=== PATIENT | male | born 1955 | race Caucasian/White ===

== ENCOUNTER 2018-04-04 15:53 | Inpatient (IN) | payer MEDICAID ==
[~2018-04-04] VITALS: Ht 180.3 cm; Wt 79.5 kg
[~2018-04-04 15:53] MED LIST: ALBU6.7H INH; LIDOcaine 2% 5ml jelly ONE; PANT-47 PO; etomidate 2mg/ml inj. ONE
[2018-04-04] MEDS ORDERED: metoprolol tartrate 25mg tablet PO ONE ×2 (16:15→23:30)
[2018-04-04] MEDS: nitroGLYCERIN 0.4mg SUBLingual tab SL PRN ×4 (16:23→23:14)
--- NOTE | 2018-04-04 16:41 | NUR ---
had 02 sat of 85 placed on 4L nc now up to 94%
[2018-04-04 16:49] LABS: BASOPHILS % (AUTO) 0.4 % (0-1); EOSINOPHILS # (AUTO) 0.1 X10'3 (0-0.9); HEMATOCRIT 45.3 % (42.0-52.0); HEMOGLOBIN 15.5 g/dl (14.0-17.9); LYMPHOCYTES # (AUTO) 1.7 X10'3 (1.1-4.8); MEAN CORPUSCULAR HEMOGLOBIN 32.6 PG (27.0-31.0); MEAN CORPUSCULAR HGB CONC 34.2 % (33.0-36.5); MEAN CORPUSCULAR VOLUME 95.2 FL (78-98); MEAN PLATELET VOLUME 8.2 FL (7.4-10.4); MONOCYTES # (AUTO) 0.6 X10'3 (0-0.9); MONOCYTES % (AUTO) 5.9 % (2-12); NEUTROPHILS # (AUTO) 7.5 X10'3 (1.8-7.7); NEUTROPHILS % (AUTO) 75.7 % (42-75); PLATELET COUNT 230 X10'3 (140-440); RED BLOOD COUNT 4.76 X10'6 (4.70-6.10); RED CELL DISTRIBUTION WIDTH 13.3 % (11.5-14.5); WHITE BLOOD COUNT 9.9 X10'3 (4.5-11.0)
[2018-04-04 16:59] LABS: ALANINE AMINOTRANSFERASE 79 U/L (12-78); ALBUMIN 4.4 G/DL (3.4-5.0); ALBUMIN/GLOBULIN RATIO 1.2 (1.1-1.5); ALKALINE PHOSPHATASE 87 IU/L (46-116); ANION GAP 15 (8-16); ASPARTATE AMINO TRANSFERASE 62 U/L (10-37); BILIRUBIN,TOTAL 1.8 MG/DL (0.1-1.0); BLOOD UREA NITROGEN 7 MG/DL (7-18); BUN/CREATININE RATIO 10.1 (5.4-32.0); CALCIUM 9.5 MG/DL (8.5-10.1); CHLORIDE 93 MMOL/L (99-107); CREATININE 0.69 MG/DL (0.60-1.10); GLUCOSE 119 MG/DL (70-104); POTASSIUM 3.5 MMOL/L (3.5-5.1); SODIUM 132 MMOL/L (135-145); TOTAL CARBON DIOXIDE 24.1 MMOL/L (24-32); TOTAL PROTEIN 8.1 G/DL (6.4-8.2); eGFR > 90 ML/MIN
[2018-04-04 17:04] LABS: PARTIAL THROMBOPLASTIN TIME 27 SECONDS (22-32); PROTHROMBIN TIME 10.2 SECONDS (9.0-12.0)
[2018-04-04] MEDS ORDERED: morphine 4 MG/ML inj SYRINge IV ONE (17:15)
[2018-04-04] MEDS ORDERED: nitroGLYCERIN 1gm ointment UD TP ONE (17:15)
[2018-04-04] MEDS ORDERED: ipratropium/albuterol 3ml nebule NEB ONE (17:15)
[2018-04-04] MEDS ORDERED: NAPR220T67 PO (17:26)
[2018-04-04 17:36] LABS: ETHANOL < 0.010 GM/DL (0.0-0.010)
[2018-04-04] MEDS ORDERED: aspirin 81mg tab.chew PO ONE (17:50)
--- NOTE | 2018-04-04 19:52 | NUR ---
pt resting cp 2/10 warm blanket provided RP bag machine tender RN
[2018-04-04] MEDS ORDERED: magnesium hydroxide 30ml (MOM) UD suspension PO PRN (20:50)
[2018-04-04] MEDS ORDERED: ondansetron/PF 4mg/2ml inj IV PRN (20:50)
[2018-04-04] MEDS ORDERED: acetaminophen 325mg tablet PO PRN (20:50)
[2018-04-04] MEDS ORDERED: mag hydrox/Alum hydrox/simeth 30ml oral suspension PO PRN (20:50)
[2018-04-04] MEDS ORDERED: albuterol 2.5 MG/3 ML nebule NEB PRN (20:55)
--- NOTE | 2018-04-04 21:00 | NUR ---
Patient in room PCU 3017. I have received report from Gustavo SMALL and had the opportunity to ask questions and assume patient care.
[2018-04-04 21:10] LABS: HEMOGLOBIN A1C 5.3 % (4.5-6.2)
--- NOTE | 2018-04-04 21:50 | NUR ---
Patient arrived to room 3017A via wheelchair and ambulated to bed. All belongings were on person, patient oriented to room, call light and plan of care. All questions answered, increased BP, Dr. Porter was notified and Metoprolol was ordered.
[2018-04-04 22:00] VITALS: BP 182/96
[2018-04-05] VITALS (8 sets, daily range): BP systolic 147–180; BP diastolic 92–112
[2018-04-05] MEDS: HYDROcodone/acetaminophen 5mg/325mg tablet PO PRN ×2 (02:15→11:31)
[2018-04-05] MEDS ORDERED: nitroGLYCERIN 0.2mg/hour patch TD ONE (02:50)
[2018-04-05 04:42] LABS: CLARITY,URINE CLEAR (Clear); COLOR,URINE YELLOW (Yellow); GLUCOSE, URINE NEGATIVE (Neg); KETONES,URINE 40 mg/dl (Neg); LEUKOCYTE ESTERASE ,URINE NEGATIVE (Neg); NITRITES, URINE NEGATIVE (Neg); OCCULT BLOOD,URINE SMALL (Neg); PH,URINE 6.5 (4.8-8.0); PROTEIN,URINE TRACE mg/dl (Neg)
[2018-04-05 04:49] LABS: UA COLLECTION TYPE URINAL
[2018-04-05 04:55] LABS: URINE AMPHETAMINE SCREEN NEGATIVE (Neg); URINE BARBITUATE SCREEN NEGATIVE (Neg); URINE BENZODIAZEPINES SCREEN NEGATIVE (Neg); URINE CANNABINOID SCREEN POSITIVE (Neg); URINE COCAINE SCREEN NEGATIVE (Neg); URINE METHADONE SCREEN NEGATIVE (Neg); URINE OPIATE SCREEN POSITIVE (Neg); URINE PHENCYCLIDINE SCREEN NEGATIVE (Neg)
[2018-04-05 04:58] LABS: SQUAMOUS EPITHELIAL CELL,UR FEW /LPF (FEW)
[2018-04-05 04:59] LABS: MUCUS STRANDS MODERATE /LPF (Neg)
[2018-04-05 05:00] LABS: BACTERIA,URINE FEW /HPF (Neg); WBC,URINE 0-4 /HPF (0-4)
[2018-04-05 06:09] LABS: ALANINE AMINOTRANSFERASE 59 U/L (12-78); ALBUMIN 3.8 G/DL (3.4-5.0); ALBUMIN/GLOBULIN RATIO 1.2 (1.1-1.5); ALKALINE PHOSPHATASE 73 IU/L (46-116); ANION GAP 14 (8-16); ASPARTATE AMINO TRANSFERASE 44 U/L (10-37); BILIRUBIN,TOTAL 1.9 MG/DL (0.1-1.0); BLOOD UREA NITROGEN 15 MG/DL (7-18); BUN/CREATININE RATIO 18.3 (5.4-32.0); CALCIUM 9.2 MG/DL (8.5-10.1); CHLORIDE 93 MMOL/L (99-107); CREATININE 0.82 MG/DL (0.60-1.10); GLUCOSE 96 MG/DL (70-104); POTASSIUM 3.1 MMOL/L (3.5-5.1); SODIUM 134 MMOL/L (135-145); TOTAL CARBON DIOXIDE 27.3 MMOL/L (24-32); TOTAL PROTEIN 7.1 G/DL (6.4-8.2); eGFR > 90 ML/MIN
--- NOTE | 2018-04-05 06:10 | NUR ---
Problems reprioritized. Patient report given, questions answered & plan of care reviewed with Diana SMALL.
--- NOTE | 2018-04-05 06:11 | NUR ---
Problems reprioritized. Patient report given, questions answered & plan of care reviewed with Amber SMALL. Pt is on room air, SL, and denies SOB and chest pain. Will continue to monitor. Addendum: 04/05/18 at 0636 by Diana Finn RN Patient in room [facility] 3017. I have received report from Amber SMALL and had the opportunity to ask questions and assume patient care. Pt is on room air, SL, and denies SOB and chest pain. Will continue to monitor.
[2018-04-05 06:12] LABS: CHOL/HDL RATIO 2.4 (0.00-4.99); CHOLESTEROL 153 MG/DL (0-200); HDL CHOLESTEROL 65 MG/DL (35-60); LDL CHOLESTEROL 76 MG/DL (50-100); TRIGLYCERIDES 61 MG/DL (20-135)
[2018-04-05 06:14] LABS: BASOPHILS % (AUTO) 0.3 % (0-1); EOSINOPHILS # (AUTO) 0.1 X10'3 (0-0.9); EOSINOPHILS % (AUTO) 1.4 % (0-6); HEMATOCRIT 41.6 % (42.0-52.0); HEMOGLOBIN 14.2 g/dl (14.0-17.9); LYMPHOCYTES # (AUTO) 2.1 X10'3 (1.1-4.8); LYMPHOCYTES % (AUTO) 19.6 % (21-51); MEAN CORPUSCULAR HEMOGLOBIN 32.3 PG (27.0-31.0); MEAN CORPUSCULAR HGB CONC 34.1 % (33.0-36.5); MEAN CORPUSCULAR VOLUME 94.6 FL (78-98); MEAN PLATELET VOLUME 8.5 FL (7.4-10.4); MONOCYTES # (AUTO) 0.7 X10'3 (0-0.9); MONOCYTES % (AUTO) 6.9 % (2-12); NEUTROPHILS # (AUTO) 7.6 X10'3 (1.8-7.7); NEUTROPHILS % (AUTO) 71.8 % (42-75); PLATELET COUNT 195 X10'3 (140-440); RED CELL DISTRIBUTION WIDTH 13.6 % (11.5-14.5); WHITE BLOOD COUNT 10.6 X10'3 (4.5-11.0)
[2018-04-05] MEDS: heparin, porcine 5000 units/ml vial SQ SCH ×2 (07:55→20:07)
[2018-04-05] MEDS ORDERED: metoprolol tartrate 25mg tablet PO SCH (08:00)
[2018-04-05] MEDS ORDERED: potassium Cl 20 mEq SR tablet PO PRN (09:30)
[2018-04-05] MEDS ORDERED: potassium Cl 40MEQ/NS 500ml 500 ML IV PRN ×2 (09:30)
[2018-04-05 09:49] LABS: MAGNESIUM 1.7 MG/DL (1.5-2.4)
[2018-04-05] MEDS ORDERED: regadenoson 0.4mg/5ml syringe IV ONE (09:55)
[2018-04-05] MEDS ORDERED: aminophylline 250mg/10ml inj. IV PRN (09:55)
[2018-04-05] MEDS ORDERED: metoprolol tartrate 1mg/ml inj IV PRN (09:55)
[2018-04-05] MEDS ORDERED: nitroGLYCERIN 0.4mg SUBLingual tab SL PRN (09:55)
[2018-04-05] MEDS: potassium Cl 20 mEq SR tablet PO PRN (10:12)
--- NOTE | 2018-04-05 10:48 | NUR ---
Elenita consult: Patient's current wt stable with documented wt from previous visits. Pt with no documented decrease in muscle strength or edema. Pt currently does not meet criteria for malnutrition. Will continue to follow. Addendum: 04/05/18 at [address] Amended: Links added.
--- NOTE | 2018-04-05 11:36 | NUR ---
PAGER ID: [phone] MESSAGE: [id number] Sandip Hernandez Pt's blood pressure 178/118, pt complaining of headache. Please call Diana#[phone] Addendum: 04/05/18 at 1259 by Diana Finn RN Dr. Nance called back, new order for hydralazine PRN for SBP > 160 mmHG, however, prior to administration of hydralazine, I rechecked blood pressure and it was 150/92, held hydralazine for now. Will continue to monitor.
[2018-04-05] MEDS ORDERED: iohexol 350MG/ML 100ml bottle IV ONE (12:32)
[2018-04-05] MEDS: nicotine 21mg patch - 24 hr TD SCH (13:57)
[2018-04-05] MEDS: hydrALAZINE 20mg/ml inj. IV PRN (15:20)
--- NOTE | 2018-04-05 15:30 | NUR ---
PAGER ID: [phone] MESSAGE: [id number] Tuan Hernandez pt's BP is 171/112, gave PRN hydralazine. Thank you, Diana#[phone]
--- NOTE | 2018-04-05 16:53 | NUR ---
PAGER ID: [phone] MESSAGE: [id number] Tuan Hernandez BP 174/109, HR 106, pt states he feels "shaky and SOB" Please call Diana, [phone]
[2018-04-05] MEDS ORDERED: LORazepam 2 mg/ml vial IV ONE (16:55)
[2018-04-05] MEDS ORDERED: thiamine inj. 100 MG in normal saline 100ml IV soln 100 ML IV ONE (17:45)
[2018-04-05] MEDS ORDERED: haloperidol 5mg tablet PO PRN (17:45)
--- NOTE | 2018-04-05 18:39 | NUR ---
Problems reprioritized. Patient report given, questions answered & plan of care reviewed with Pat RN.
[2018-04-05] MEDS: metoprolol tartrate 25mg tablet PO SCH (20:10)
[2018-04-05] MEDS: LORazepam 2 mg/ml vial IV PRN ×2 (20:24→21:35)
[2018-04-05] MEDS: ipratropium/albuterol 3ml nebule NEB SCH (21:00)
[2018-04-05] MEDS ORDERED: haloperidol lactate 5mg/ml inj IM ONE (21:45)
[2018-04-05] MEDS: haloperidol lactate 5mg/ml inj IM PRN (21:56)
[2018-04-06] MEDS: LORazepam 2 mg/ml vial IV PRN ×9 (00:05→21:39)
[2018-04-06 00:20] VITALS: BP 148/91
[2018-04-06] MEDS: hydrALAZINE 25 MG tablet PO SCH ×3 (00:24→15:42)
[2018-04-06] MEDS: potassium Cl 20 mEq SR tablet PO PRN (00:25)
[2018-04-06] MEDS: haloperidol lactate 5mg/ml inj IM PRN ×5 (02:08→21:38)
[2018-04-06 06:00] VITALS: BP 158/89
--- NOTE | 2018-04-06 06:47 | NUR ---
Patient in room PCU 3012. I have received report from GEOVANNY Key and had the opportunity to ask questions and assume patient care.
[2018-04-06 07:13] LABS: BASOPHILS % (AUTO) 0 % (0-1); EOSINOPHILS # (AUTO) 0.1 X10'3 (0-0.9); EOSINOPHILS % (AUTO) 0.5 % (0-6); HEMATOCRIT 44.1 % (42.0-52.0); HEMOGLOBIN 15.1 g/dl (14.0-17.9); LYMPHOCYTES # (AUTO) 1.2 X10'3 (1.1-4.8); LYMPHOCYTES % (AUTO) 9.9 % (21-51); MEAN CORPUSCULAR HEMOGLOBIN 32.4 PG (27.0-31.0); MEAN CORPUSCULAR HGB CONC 34.1 % (33.0-36.5); MEAN CORPUSCULAR VOLUME 94.8 FL (78-98); MEAN PLATELET VOLUME 9.1 FL (7.4-10.4); MONOCYTES # (AUTO) 0.7 X10'3 (0-0.9); MONOCYTES % (AUTO) 6.2 % (2-12); NEUTROPHILS # (AUTO) 9.7 X10'3 (1.8-7.7); NEUTROPHILS % (AUTO) 83.4 % (42-75); PLATELET COUNT 196 X10'3 (140-440); RED BLOOD COUNT 4.65 X10'6 (4.70-6.10); RED CELL DISTRIBUTION WIDTH 13.6 % (11.5-14.5); WHITE BLOOD COUNT 11.6 X10'3 (4.5-11.0)
[2018-04-06 07:39] LABS: ALANINE AMINOTRANSFERASE 58 U/L (12-78); ALBUMIN 4.1 G/DL (3.4-5.0); ALBUMIN/GLOBULIN RATIO 1.2 (1.1-1.5); ALKALINE PHOSPHATASE 80 IU/L (46-116); ANION GAP 16 (8-16); ASPARTATE AMINO TRANSFERASE 52 U/L (10-37); BILIRUBIN,TOTAL 1.1 MG/DL (0.1-1.0); BLOOD UREA NITROGEN 21 MG/DL (7-18); BUN/CREATININE RATIO 27.6 (5.4-32.0); CALCIUM 9.6 MG/DL (8.5-10.1); CHLORIDE 97 MMOL/L (99-107); CREATININE 0.76 MG/DL (0.60-1.10); GLUCOSE 103 MG/DL (70-104); MAGNESIUM 1.9 MG/DL (1.5-2.4); POTASSIUM 3.9 MMOL/L (3.5-5.1); SODIUM 136 MMOL/L (135-145); TOTAL CARBON DIOXIDE 23.5 MMOL/L (24-32); TOTAL PROTEIN 7.6 G/DL (6.4-8.2); eGFR > 90 ML/MIN
[2018-04-06] MEDS: nicotine 21mg patch - 24 hr TD SCH (08:56)
[2018-04-06] MEDS: ipratropium/albuterol 3ml nebule NEB SCH ×3 (08:56→21:00)
[2018-04-06] MEDS: metoprolol tartrate 25mg tablet PO SCH ×2 (08:57→20:00)
[2018-04-06] MEDS: heparin, porcine 5000 units/ml vial SQ SCH ×2 (08:58→19:55)
[2018-04-06] MEDS: folic acid inj. 2 MG, thiamine inj. 100 MG, MVI, adult No.4 with vit. K 10 ML in dextro... IV SCH ×4 (09:36)
[2018-04-06] MEDS ORDERED: chlordiazePOXIDE 25mg capsule PO PRN (10:25)
[2018-04-06 11:00] VITALS: BP 155/95
[2018-04-06 15:00] VITALS: BP 163/88
[2018-04-06] MEDS: gabapentin 400mg capsule PO SCH (15:42)
[2018-04-06 18:00] VITALS: BP 167/101
--- NOTE | 2018-04-06 18:29 | NUR ---
Problems reprioritized. Patient report given, questions answered & plan of care reviewed with GEOVANNY Betts.
--- NOTE | 2018-04-06 18:50 | NUR ---
Patient in room PCU 3012. I have received report from GEOVANNY Ma and had the opportunity to ask questions and assume patient care.
[2018-04-06] MEDS: hydrALAZINE 20mg/ml inj. IV PRN (21:38)
[2018-04-06 22:00] VITALS: BP 158/82
[2018-04-07 00:08] VITALS: BP 170/94
[2018-04-07] MEDS: LORazepam 2 mg/ml vial IV PRN ×3 (00:13→05:13)
[2018-04-07 02:00] VITALS: BP 152/97
[2018-04-07] MEDS: haloperidol lactate 5mg/ml inj IM PRN (03:35)
[2018-04-07 06:00] VITALS: BP 151/97
--- NOTE | 2018-04-07 06:00 | NUR ---
Patient in room PCU 3012. I have received report from SAMMI SMALL and had the opportunity to ask questions and assume patient care.
[2018-04-07 06:03] LABS: BASOPHILS % (AUTO) 0.1 % (0-1); EOSINOPHILS # (AUTO) 0.2 X10'3 (0-0.9); EOSINOPHILS % (AUTO) 1.2 % (0-6); HEMATOCRIT 45.1 % (42.0-52.0); HEMOGLOBIN 15.3 g/dl (14.0-17.9); LYMPHOCYTES # (AUTO) 0.5 X10'3 (1.1-4.8); LYMPHOCYTES % (AUTO) 2.9 % (21-51); MEAN CORPUSCULAR HEMOGLOBIN 32.2 PG (27.0-31.0); MEAN CORPUSCULAR HGB CONC 33.8 % (33.0-36.5); MEAN CORPUSCULAR VOLUME 95.3 FL (78-98); MEAN PLATELET VOLUME 9.5 FL (7.4-10.4); MONOCYTES # (AUTO) 0.5 X10'3 (0-0.9); MONOCYTES % (AUTO) 2.7 % (2-12); NEUTROPHILS # (AUTO) 17.1 X10'3 (1.8-7.7); NEUTROPHILS % (AUTO) 93.1 % (42-75); PLATELET COUNT 164 X10'3 (140-440); RED BLOOD COUNT 4.74 X10'6 (4.70-6.10); RED CELL DISTRIBUTION WIDTH 13.7 % (11.5-14.5); WHITE BLOOD COUNT 18.4 X10'3 (4.5-11.0)
[2018-04-07 06:09] LABS: ALANINE AMINOTRANSFERASE 61 U/L (12-78); ALBUMIN 3.8 G/DL (3.4-5.0); ALKALINE PHOSPHATASE 74 IU/L (46-116); ANION GAP 21 (8-16); ASPARTATE AMINO TRANSFERASE 78 U/L (10-37); BILIRUBIN,TOTAL 1.4 MG/DL (0.1-1.0); BLOOD UREA NITROGEN 17 MG/DL (7-18); BUN/CREATININE RATIO 23.3 (5.4-32.0); CHLORIDE 95 MMOL/L (99-107); CREATININE 0.73 MG/DL (0.60-1.10); GLUCOSE 104 MG/DL (70-104); POTASSIUM 3.5 MMOL/L (3.5-5.1); SODIUM 136 MMOL/L (135-145); TOTAL CARBON DIOXIDE 20.3 MMOL/L (24-32); TOTAL PROTEIN 7.6 G/DL (6.4-8.2); eGFR > 90 ML/MIN
--- NOTE | 2018-04-07 06:38 | NUR ---
Problems reprioritized. Patient report given, questions answered & plan of care reviewed with GEOVANNY Murguia.
[2018-04-07] MEDS: folic acid inj. 2 MG, thiamine inj. 100 MG, MVI, adult No.4 with vit. K 10 ML in dextro... IV SCH ×4 (07:47)
[2018-04-07] MEDS: nicotine 21mg patch - 24 hr TD SCH (07:47)
[2018-04-07] MEDS: heparin, porcine 5000 units/ml vial SQ SCH (07:48)
[2018-04-07] MEDS: metoprolol tartrate 25mg tablet PO SCH (07:48)
[2018-04-07] MEDS: hydrALAZINE 25 MG tablet PO SCH ×2 (07:48)
[2018-04-07] MEDS: gabapentin 400mg capsule PO SCH ×2 (07:58)
[2018-04-07] MEDS: ipratropium/albuterol 3ml nebule NEB SCH (09:04)
[2018-04-07 11:00] VITALS: BP 157/103
--- NOTE | 2018-04-07 16:16 | NUR ---
PT PASSED AT 1429. DONOR BANK CALLED AT 1450
[2018-04-07] MEDS ORDERED: LORazepam 1 MG tablet PO PRN (17:45)
[2018-04-07] MEDS ORDERED: LORazepam 2 mg/ml vial IV PRN (17:45)
--- NOTE | 2018-04-07 17:59 | NUR ---
CALLED [employer] FOR EMPLOYEE WELLNESS/FITNESS COORDINATOR
--- NOTE | 2018-04-07 20:08 | NUR ---
Talat and Marilin picked up the patient at 1999.
== END 2018-04-07 14:29 | disposition expired | DRG 198 ==
LOC: ER 15:54 → ED HOLD 20:50 → PCU 3S 21:50
PROVIDERS: ADMIT Internal Medicine; ATTEND Family Medicine
PROC: 5A12012 Performance of Cardiac Output, Single, Manual (ICD-10-PCS; principal; 2018-04-07)
DX: I20.0 Unstable angina (principal); J96.90 Respiratory failure, unspecified, unspecified whether with hypoxia or hypercapnia; I46.9 Cardiac arrest, cause unspecified; D72.829 Elevated white blood cell count, unspecified; F12.90 Cannabis use, unspecified, uncomplicated; G89.29 Other chronic pain; J44.9 Chronic obstructive pulmonary disease, unspecified; M54.9 Dorsalgia, unspecified; I10 Essential (primary) hypertension; R61 Generalized hyperhidrosis; F10.231 Alcohol dependence with withdrawal delirium; F17.200 Nicotine dependence, unspecified, uncomplicated; Z90.49 Acquired absence of other specified parts of digestive tract; Z78.1 Physical restraint status
CPT/HCPCS: 36415; 71045; 71275; 78451; 80053; 80061; 80305; 80320; 81001; 82140; 82948; 83036; 83605; 83735; 84145; 84484; 85025; 85610; 85730; 87040; 87070; 92950; 93005; 94640; 94760; 96374; 99285; A9500; G0378; J0360; J1630; J1644; J2060; J2270; J2405; J3411; J3490; J7030; J7060; Q9967